=== PATIENT | female | born 1980 | race Caucasian/White ===

== ENCOUNTER → 2016-07-14 | Outpatient (CLI) | payer MEDICARE, MEDICAID ==
[~2016-07-14] MED LIST: AZIT200S47 PO; DEPO-PROVERA IM; ESCT10T PO; FEXO180T PO; FLUP10TA PO; HYDR473S16 PO; LISI10TA PO; LITH300C PO; MNTL10T PO; RANI300T4 PO; TETRACAINE LOLLIPOPS; TRAZ150T42 PO
--- NOTE | 2016-07-14 16:53 | Diagnostic Imaging Report ---
INDICATION: History of stones and right-sided abdominal pain. KUB obtained at 01:34 p.m. There is no prior study for comparison. The abdominal bowel gas pattern is unremarkable. There is no sign of obstruction or ileus. There are surgical clips in the right upper quadrant. There are no apparent radiopaque calculi over the renal shadows. There are no significant calculi over the pelvis. There are a couple of tiny calcifications on the left side of the pelvis which may be phleboliths although small stones are not excluded. IMPRESSION: Unremarkable bowel gas pattern. Postop changes in the right upper quadrant. Tiny phlebolith versus stone on left side of the pelvis. No other significant findings. Dictated by: Dictated on workstation # [id number]
== END ==
LOC: RAD 13:09
PROVIDERS: ATTEND Urology
DX: Z87.442 Personal history of urinary calculi (principal)
CPT/HCPCS: 74000

== ENCOUNTER 2021-12-08 08:06 | Emergency (ER) | payer MEDICARE, MEDICAID ==
[~2021-12-08] VITALS: Ht 175 cm; Wt 129.9 kg
[2021-12-08] MEDS ORDERED: ONDA4TAB11 (08:23)
[2021-12-08] MEDS ORDERED: SULF-221 (08:23)
--- NOTE | 2021-12-08 08:29 | ED Abdominal Pain ---
General Chief Complaint: Abdominal/GI Problems Stated Complaint: RLQ PAIN Nursing Triage Note: ARRIVED VIA AMB TO ROOM 08 WITH COMPLAINTS OF RLQ PAIN. BEING TREATED FOR A UTI SINCE WEDNESDAY. HAS BEEN SEEN AT [facility] AND HAD BLOOD WORK,XRAY, AND CT. Source of Information: Patient Exam Limitations: No Limitations History of Present Illness Date Seen by Provider: Dec 08, 2021 Time Seen by Provider: 08:15 Initial Comments 41-year-old female presents to the emergency department today for right lower abdominal pain. She states initially the symptoms have been present for just couple days but then tells me that she was seen about a week ago for similar pains. She does have these pains frequently. She has "constipation." She was seen at an outlying facility and had a CT scan which was reportedly negative. She does state that she had an elevated white blood cell count was seen in urgent care which was the reason for her emergency department visit. She denies any fevers or chills. Her pain is sharp stabbing in her right lower abdomen without radiation. It is worse when she takes a deep breath. She has had loose stools the last couple of days but she believes this is related to taking MiraLA X as she was recommended to take 7 capfuls of MiraLAX with a lot of water and wait and repeat this in 1 hour. When questioned further she does state that she has had these pains off and on for several years. Allergies and Home Medications Allergies Coded Allergies: Penicillins (Unverified Allergy, Unknown, 12/08/21) cephalexin (Unverified Allergy, Unknown, 12/08/21) Patient Home Medication List Home Medication List Reviewed: Yes Dicyclomine HCl (Dicyclomine HCl) 20 Mg Tablet, 20 MG PO ACHS Prescribed by: LAVERN THOMAS MD on 12/08/21 1010 Escitalopram Oxalate (Lexapro) 10 Mg Tablet, 1 EACH PO DAILY, (Reported) Entered as Reported by: JAY PACHECO on 06/24/10 1034 Fexofenadine Hcl (Amelia) 180 Mg Tablet, 1 TAB PO DAILY, (Reported) Entered as Reported by: JAY PCAHECO on 06/24/10 1034 Fluphenazine Hcl (Fluphenazine Hcl) 10 Mg Tablet, 10 MG PO DAILY, (Reported) Entered as Reported by: JAY PACHECO on 06/24/101033 Lisinopril (Zestril) 10 Mg Tablet, 1 EACH PO DAILY, (Reported) Entered as Reported by: JAY PACHECO on 06/24/101033 [place] Carbonate ([place] Carbonate 300 Mg Cap) 300 Mg Capsule, 1 EACH PO HS, (Reported) Entered as Reported by: JAY PACHECO on 06/24/101033 Montelukast Sodium (Singulair 10 Mg) 10 Mg Tablet, 1 TAB PO DAILY, (Reported) Entered as Reported by: JAY PACHECO on 06/24/101033 Ondansetron (Ondansetron Odt) 4 Mg Tab.rapdis, (Reported) Entered as Reported by: HAO FLOYD on 12/08/21822 Last Action: New Order Ranitidine Hcl (Ranitidine Hcl) 300 Mg Tablet, 150 MG PO BID, (Reported) Entered as Reported by: JAY PACHECO on 06/24/101033 Sulfamethoxazole/Trimethoprim (Bactrim Ds Tablet) 800 Mg-160 Mg Tablet, (Reported) Entered as Reported by: HAO FLOYD on 12/08/21822 Last Action: New Order [Depo-Provera] , IM Q3MO, (Reported) Entered as Reported by: JAY PACHECO on 06/24/101033 Discontinued Medications Azithromycin (Azithromycin 200 Mg/5 Ml Susp) 200 Mg/5 Ml Susp.recon, 2 TSP PO DAILY, (Reported) Discontinued Reason: No Longer Taking Entered as Reported by: TORRI PATINO on 07/01/101456 Last Action: Discontinued Hydrocodone Bit/Acetaminophen (Lortab Elixir 7.5 Mg/15 Ml) 480 Ml Solution, 2-3 TSP PO Q4HR PRN, (Reported) Discontinued Reason: No Longer Taking Entered as Reported by: TORRI PATINO on 07/01/101457 Last Action: Discontinued Trazodone Hcl (Trazodone Hcl) 150 Mg Tablet, 150 MG PO HS, (Reported) Discontinued Reason: No Longer Taking Entered as Reported by: JAY PACHECO on 06/24/101033 Last Action: Discontinued [Tetracaine Lollipops] , (Reported) Discontinued Reason: No Longer Taking Entered as Reported by: TORRI PATINO on 07/01/101456 Last Action: Discontinued Review of Systems Review of Systems Constitutional: no symptoms reported EENTM: No Symptoms Reported Respiratory: No Symptoms Reported Cardiovascular: No Symptoms Reported Gastrointestinal: Abdominal Pain, Nausea Genitourinary: No Symptoms Reported Musculoskeletal: no symptoms reported Skin: no symptoms reported Psychiatric/Neurological: No Symptoms Reported Endocrine: No Symptoms Reported Hematologic/Lymphatic: No Symptoms Reported Past Iftearg-Ieaccl-Oijwyk Hx Patient Social History Tobacco Use?: No Substance use?: No Alcohol Use?: No Immunizations Up To Date COVID19 Vaccine Independent Consultant: MONIKA Past Medical History Surgery/Hospitalization HX: Hysterectomy, cholecystectomy Surgeries: Yes Reproductive Disorders: No Family Medical History Reviewed Nursing Family Hx No Pertinent Family Hx Physical Exam Vital Signs Vital Signs - First Documented 12/08/21 08:15 Temp 36.7 Pulse 112 Resp 16 B/P (MAP) 123/103 (110) Pulse Ox 95 O2 Delivery Room Air Capillary Refill : Less Than 3 Seconds Height/Weight/BMI Height: '" Weight: lbs. oz. kg; 42.00 BMI Method: General Appearance: no apparent distress HEENT: PERRL/EOMI, normal ENT inspection, pharynx normal Neck: non-tender, supple Respiratory: chest non-tender, lungs clear, normal breath sounds, no respiratory distress, no accessory muscle use Cardiovascular: regular rate, rhythm, no edema, no gallop, no JVD, no murmur Gastrointestinal: normal bowel sounds, non tender, soft, no organomegaly, other (I am unable to elicit tenderness on exam today) Extremities: non-tender, normal inspection, no pedal edema, no calf tenderness, normal capillary refill Back: normal inspection, no CVA tenderness, no vertebral tenderness Neurologic/Psychiatric: alert, normal mood/affect, oriented x 3 Skin: normal color, warm/dry Lymphatic: no adenopathy Progress/Results/Core Measures Results/Orders Lab Results Laboratory Tests Test 12/08/21 08:19 12/08/21 09:06 Range/Units Urine Color YELLOW Urine Clarity CLEAR Urine pH 6.0 5-9 Urine Specific [place] >=1.030 1.016-1.022 Urine Protein TRACE H NEGATIVE Urine Glucose (UA) NEGATIVE NEGATIVE Urine Ketones NEGATIVE NEGATIVE Urine Nitrite NEGATIVE NEGATIVE Urine Bilirubin NEGATIVE NEGATIVE Urine Urobilinogen 0.2 < = 1.0 MG/DL Urine Leukocyte Esterase NEGATIVE NEGATIVE Urine RBC (Auto) NEGATIVE NEGATIVE Urine RBC NONE /HPF Urine WBC 0-2 /HPF Urine Squamous Epithelial Cells 10-25 H /HPF Urine Crystals NONE /LPF Urine Bacteria MODERATE H /HPF Urine Casts NONE /LPF Urine Mucus MODERATE H /LPF Urine Culture Indicated YES White Blood Count 10.2 4.3-11.0 10^3/uL Red Blood Count 4.26 3.80-5.11 10^6/uL Hemoglobin 10.6 L 11.5-16.0 g/dL Hematocrit 35 35-52 % Mean Corpuscular Volume 82 80-99 fL Mean Corpuscular Hemoglobin 25 25-34 pg Mean Corpuscular Hemoglobin Concent 30 L 32-36 g/dL Red Cell Distribution Width 15.5 H 10.0-14.5 % Platelet Count 266 130-400 10^3/uL Mean Platelet Volume 10.6 9.0-12.2 fL Immature Granulocyte % (Auto) 1 % Neutrophils (%) (Auto) 78 H 42-75 % Lymphocytes (%) (Auto) 13 12-44 % Monocytes (%) (Auto) 7 0-12 % Eosinophils (%) (Auto) 1 0-10 % Basophils (%) (Auto) 0 0-10 % Neutrophils # (Auto) 7.9 H 1.8-7.8 10^3/uL Lymphocytes # (Auto) 1.3 1.0-4.0 10^3/uL Monocytes # (Auto) 0.7 0.0-1.0 10^3/uL Eosinophils # (Auto) 0.1 0.0-0.3 10^3/uL Basophils # (Auto) 0.0 0.0-0.1 10^3/uL Immature Granulocyte # (Auto) 0.1 0.0-0.1 10^3/uL Sodium Level 139 135-145 MMOL/L Potassium Level 3.6 3.6-5.0 MMOL/L Chloride Level 109 H 98-107 MMOL/L Carbon Dioxide Level 20 L 21-32 MMOL/L Anion Gap 10 5-14 MMOL/L Blood Urea Nitrogen 11 7-18 MG/DL Creatinine 0.87 0.60-1.30 MG/DL Estimat Glomerular Filtration Rate 86 BUN/Creatinine Ratio 13 Glucose Level 103 70-105 MG/DL Calcium Level 8.9 8.5-10.1 MG/DL Corrected Calcium 9.1 8.5-10.1 MG/DL Total Bilirubin 0.3 0.1-1.0 MG/DL Aspartate Amino Transf (AST/SGOT) 12 5-34 U/L Alanine Aminotransferase (ALT/SGPT) 9 0-55 U/L Alkaline Phosphatase 87 40-136 U/L Total Protein 6.9 6.4-8.2 GM/DL Albumin 3.8 3.2-4.5 GM/DL Lipase 11 8-78 U/L My Orders Orders - WILLIAM,LAVERN L DO Cbc With Automated Diff (12/08/21 08:25) Comprehensive Metabolic Panel (12/08/21 08:25) Lipase (12/08/21 08:25) Ua Culture If Indicated (12/08/21 08:25) Urine Culture (12/08/21 08:19) Dicyclomine Capsule (Bentyl Capsule) (12/08/21 10:15) Vital Signs/I&O 12/08/21 12/08/21 08:15 10:21 Temp 36.7 Pulse 112 101 Resp 16 16 B/P (MAP) 123/103 (110) 116/83 Pulse Ox 95 98 O2 Delivery Room Air Room Air Blood Pressure Mean: 110 Departure Communication (Admissions) I received the records from [facility]. On 12/07 she was evaluated there and had a CT scan of her abdomen pelvis with contrast which was negative. Labs were reassuring at that time. Her exam and labs are again reassuring here. I will discharge her home with Bentyl and close follow-up. She states understanding. Questions were sought and answered and she is discharged in stable condition. Impression Primary Impression: Abdominal pain Qualified Codes: R10.31 - Right lower quadrant pain Disposition: 01 HOME, SELF-CARE Condition: Stable Departure-Patient Inst. Referrals: NO,LOCAL PHYSICIAN (PCP/Family) Primary Care Physician Patient Instructions: Abdominal Pain, Adult ED Add. Discharge Instructions: Patient in emergency department today for abdominal pain. As discussed I am giving you prescription called Bentyl which should help with this cramping type pain. Your CT scan was reviewed from [facility] from yesterday was normal. Your labs and exam are reassuring here today. Should you continue to have persistent symptoms I recommend you follow-up your primary care doctor for calling to schedule an appointment. Return to the emergency department for any severe concerns. All discharge instructions reviewed with patient and/or family. Voiced understanding. Scripts Dicyclomine HCl (Dicyclomine HCl) 20 Mg Tablet 20 MG PO ACHS for Cramps for 10 Days, #30 TAB Prov: LAVERN THOMAS DO 12/08/21 LAVERN THOMAS DO Dec 08, 2021 08:29
[2021-12-08 08:33] LABS: BILIRUBIN,URINE NEGATIVE (NEGATIVE); CLARITY,URINE CLEAR; COLOR,URINE YELLOW; GLUCOSE, URINE (UA) NEGATIVE (NEGATIVE); KETONES,URINE NEGATIVE (NEGATIVE); LEUKOCYTE ESTERASE ,URINE NEGATIVE (NEGATIVE); NITRITE,URINE NEGATIVE (NEGATIVE); PROTEIN,URINE TRACE (NEGATIVE)
[2021-12-08 08:49] LABS: BACTERIA,URINE MODERATE /HPF
[2021-12-08 08:51] LABS: WBC,URINE 0-2 /HPF
[2021-12-08 09:10] LABS: BASOPHILS % (AUTO) 0 % (0-10); EOSINOPHILS # (AUTO) 0.1 10^3/uL (0.0-0.3); EOSINOPHILS % (AUTO) 1 % (0-10); HEMATOCRIT 35 % (35-52); HEMOGLOBIN 10.6 g/dL (11.5-16.0); LYMPHOCYTES # (AUTO) 1.3 10^3/uL (1.0-4.0); LYMPHOCYTES % (AUTO) 13 % (12-44); MEAN CORPUSCULAR HEMOGLOBIN 25 pg (25-34); MEAN CORPUSCULAR HGB CONC 30 g/dL (32-36); MEAN CORPUSCULAR VOLUME 82 fL (80-99); MEAN PLATELET VOLUME 10.6 fL (9.0-12.2); MONOCYTES # (AUTO) 0.7 10^3/uL (0.0-1.0); MONOCYTES % (AUTO) 7 % (0-12); NEUTROPHILS # (AUTO) 7.9 10^3/uL (1.8-7.8); NEUTROPHILS % (AUTO) 78 % (42-75); PLATELET COUNT 266 10^3/uL (130-400); WHITE BLOOD COUNT 10.2 10^3/uL (4.3-11.0)
[2021-12-08 09:25] LABS: ALBUMIN 3.8 GM/DL (3.2-4.5); POTASSIUM 3.6 MMOL/L (3.6-5.0)
[2021-12-08 09:26] LABS: CALCIUM 8.9 MG/DL (8.5-10.1)
[2021-12-08 09:28] LABS: TOTAL PROTEIN 6.9 GM/DL (6.4-8.2)
[2021-12-08 09:30] LABS: BILIRUBIN,TOTAL 0.3 MG/DL (0.1-1.0)
[2021-12-08 09:31] LABS: CREATININE SERUM 0.87 MG/DL (0.60-1.30)
[2021-12-08] MEDS ORDERED: DICY20TA PO (10:10)
[2021-12-08] MEDS ORDERED: DICYCLOMINE 10 MG (BENTYL) CAP PO SCH (10:15)
[2021-12-08 10:21] VITALS: BP 116/83
== END 2021-12-08 10:21 | disposition home or self-care (01) ==
LOC: ER 08:06
DX: R10.31 Right lower quadrant pain (principal); Z90.49 Acquired absence of other specified parts of digestive tract; Z90.710 Acquired absence of both cervix and uterus
CPT/HCPCS: 36415; 80053; 81000; 83690; 85025; 87088